=== PATIENT | male | born 1950 | race Caucasian/White ===

== ENCOUNTER 2018-04-10 15:01 | Emergency (ER) | payer MEDICARE, BC, OTHER ==
[2018-04-10 15:19] VITALS: PULSE 70
[2018-04-10] MEDS ORDERED: LIDOCAINE 1% INJ 10MG/ML (20 ML MDV) SQ ONE (17:15)
--- NOTE | 2018-04-10 17:15 | ED ---
General Adult HPI - General Chief complaint: Wound/Laceration Stated complaint: laceration Time Seen by Provider: 04/10/18 17:00 Source: patient, RN notes reviewed Mode of arrival: ambulatory Limitations: no limitations - History of Present Illness Initial comments: 67-year-old male with a past cardiac and OA history presents to the emergency department for a chief complaint of laceration to the right wrist that occurred about 3 hours ago. Patient states he was at work when he lacerated the wrist on a piece of sheet glass accidentally. Patient states it is painful to move his wrist with supination and flexion but denies any weakness or difficulty moving the wrist, hand or digits. Patient denies sustaining any other injuries. Patient states his tetanus is up-to-date. Patient has no other complaints at this time including shortness of breath, chest pain, abdominal pain, nausea or vomiting, headache, or visual changes. - Related Data Home Medications Medication Instructions Recorded Confirmed Pravastatin Sodium [Pravachol] 80 mg PO HS 05/16/14 05/18/14 Aspirin [Adult Low Dose Aspirin EC] 81 mg PO DAILY 04/10/18 04/10/18 Metoprolol Tartrate 25 mg PO BID 04/10/18 04/10/18 Multivitamins, Thera [Multivitamin 1 tab PO DAILY 04/10/18 04/10/18 (formulary)] Tamsulosin HCl [Flomax] 0.4 mg PO HS 04/10/18 04/10/18 Previous Rx's Medication Instructions Recorded Cephalexin [Keflex] 500 mg PO Q6HR 7 Days #12 cap 04/10/18 Allergies Allergy/AdvReac Type Severity Reaction Status Date / Time acetaminophen [From Vicodin] AdvReac Itching Verified 04/10/18 17:33 hydrocodone bitartrate AdvReac Itching Verified 04/10/18 17:33 [From Vicodin] Review of Systems ROS Statement: Those systems with pertinent positive or pertinent negative responses have been documented in the HPI. ROS Other: All systems not noted in ROS Statement are negative. Past Medical History Past Medical History: Hyperlipidemia, Hypertension, Myocardial Infarction (DE), Osteoarthritis (OA) Last Myocardial Infarction Date:: unknown History of Any Multi-Drug Resistant Organisms: None Reported Past Surgical History: Appendectomy, Coronary Bypass/CABG, Heart Catheterization , Tonsillectomy Additional Past Surgical History / Comment(s): triple bypass Past Anesthesia/Blood Transfusion Reactions: No Reported Reaction Past Psychological History: No Psychological Hx Reported Smoking Status: Former smoker Past Alcohol Use History: Occasional Past Drug Use History: None Reported General Exam - General Exam Comments Initial Comments: Well appearing male sitting up on edge of bed. Limitations: no limitations General appearance: alert, in no apparent distress Head exam: Present: atraumatic, normocephalic, normal inspection Eye exam: Present: normal appearance. Absent: scleral icterus, conjunctival injection ENT exam: Present: normal exam, mucous membranes moist Neck exam: Present: normal inspection, full ROM. Absent: tenderness, meningismus, lymphadenopathy Respiratory exam: Present: normal lung sounds bilaterally. Absent: respiratory distress, wheezes, rales, rhonchi, stridor Cardiovascular Exam: Present: regular rate, normal rhythm, normal heart sounds. Absent: systolic murmur, diastolic murmur, rubs, gallop, clicks Extremities exam: Present: full ROM (Full flexion, extension, radial and ulnar deviation of the right wrist. Full ROM and full strength including flexion, extension, abduction, adduction of all MCP, PIP, DIP joints in all 5 digits on RUE. ), tenderness (Tenderness of laceration site), normal capillary refill ( Capillary refill less than 2 seconds, radial pulse 2+ and ulnar pulse 2+ in the right upper extremity. Normal Kal test), other (Sensation intact in the right upper extremity. 3 cm laceration on the volar aspect of the right wrist about 6 centimeters proximal to the flexor crease. ). Absent: joint swelling Neurological exam: Present: alert, oriented X3, CN II-XII intact Psychiatric exam: Present: normal affect, normal mood Skin exam: Present: warm, dry, intact, normal color. Absent: rash Course Vital Signs 04/10/18 15:17 Temperature 98.0 F Pulse Rate 70 Respiratory 18 Rate Blood Pressure 162/73 O2 Sat by Pulse 99 Oximetry Procedures - Laceration Laceration #1 Consent Obtained: verbal consent Indication: laceration Site: other (distal volar right forearm 6cm proximal to flexor crease of wrist) Description: linear, flap Depth: simple, single layer Anesthetic Used: lidocaine 1% Anesthesia Technique: local infiltration Amount (mls): 2 Pre-repair: wound explored (wound expored extensively without any evidence of FB ), irrigated extensively (soaked in sterile water/soap, pressure irrigation using saline, irrigated with 1 L saline, iodine used for prep), deep structures intact (no deep structures visible or affected with thorough inspection) Size of Sutures: 5-0, other (ethilon ) Number of Sutures: 7 Technique: simple, interrupted Patient Tolerated Procedure: well, no complications Medical Decision Making - Medical Decision Making 67-year-old male since to the emergency department for a chief complaint of laceration to the right wrist. Patient accidentally cut his wrist on glass at work. Patient is up-to-date on tetanus. Patient has full range of motion of the right wrist hand and digits as well as full strength with wrist movements and finger movement. Cmm Inspector strength 5 out of 5 in right wrist. Neurovascular intact. There is about a 3 cm laceration on the lower right distal forearm. It is about 6 cm proximal to the flexor wrist crease. Wound was cleaned extensively with pressure irrigation. It was explored extensively. No evidence of tendon exposure or injury. No foreign bodies evident. Wrist x-ray showed no fracture or dislocation. However possible anterior 1 mm foreign body noted. No evidence of foreign body with extensive inspection of the laceration. Laceration was repaired with 7 simple interrupted sutures without any complications. Case was discussed with Dr. Marcus. Patient was put on antibiotics for close proximity to hand. He will follow up with primary care for wound recheck. I discussed with patient in depth to monitor for any signs of infection and to return immediately if these occur. He will return in 7-10 days to have sutures removed. - Radiology Data Radiology results: report reviewed, image reviewed (by myself and Dr Marcus) Disposition Clinical Impression: Laceration Disposition: HOME SELF-CARE Condition: Good Instructions: Care For Your Stitches (ED), Laceration (ED) Additional Instructions: Please take antibiotic as directed. Please keep the area clean. Please monitor for any signs of infection such as spreading or streaking redness or drainage and return if these occur. Follow-up with primary care in 1-2 days for wound recheck. Return to the emergency department in 7-10 days to have sutures removed. Prescriptions: Cephalexin [Keflex] 500 mg PO Q6HR 7 Days #12 cap Is patient prescribed a controlled substance at d/c from ED?: No Referrals: Bethany Ritchie MD [Primary Care Provider] - 1-2 days Time of Disposition: 18:11
--- NOTE | 2018-04-10 17:36 | XR ---
EXAMINATION TYPE: XR wrist limited RT DATE OF EXAM: 04/10/2018 COMPARISON: NONE HISTORY: Laceration TECHNIQUE: 2 views FINDINGS: I see no fracture nor dislocation. Carpal bones appear intact. There is a 1 mm opacity proj ecting in the anterior soft tissues at the distal radius on the lateral view. IMPRESSION: Possible tiny anterior foreign body. No fracture.
[2018-04-10 18:26] VITALS: BP 148/70; RESP 16; TEMP 98
== END 2018-04-10 18:25 | disposition home or self-care (01) ==
LOC: EC 15:01
DX: S51.811A Laceration without foreign body of right forearm, initial encounter (principal); E78.5 Hyperlipidemia, unspecified; I10 Essential (primary) hypertension; M19.90 Unspecified osteoarthritis, unspecified site; I25.2 Old myocardial infarction; Z79.82 Long term (current) use of aspirin; Z79.899 Other long term (current) drug therapy; Z88.5 Allergy status to narcotic agent; Z88.6 Allergy status to analgesic agent; W25.XXXA Contact with sharp glass, initial encounter; Y92.69 Other specified industrial and construction area as the place of occurrence of the external cause
CPT/HCPCS: 73100; 99283; 12002; J2001

== ENCOUNTER → 2018-04-30 | Outpatient (CLI) | payer MEDICARE, BC, OTHER ==
--- NOTE | 2018-05-01 15:18 | MR ---
EXAMINATION TYPE: MR hip RT wo con DATE OF EXAM: 04/30/2018 COMPARISON: None HISTORY: Pain in right hip TECHNIQUE: Multiplanar, multisequence images of the right were acquired without intravenous contrast per MRI departmental protocol. FINDINGS: There are moderate degenerative changes of the bilateral femoral acetabular joints with mar ginal osteophytes, cephalad joint space narrowing and acetabular roof sclerosis. Acetabular sourcil o steophytes are also seen. The femoral heads maintain a normal rounded contour. No evidence of avascul ar necrosis. No evidence of subchondral collapse. No bone marrow edema. No linear T1 fracture line. N o cam deformity. No findings that would suggest femoral acetabular impingement syndrome. There is degenerative disc disease of L5-S1, partially visualized. There is high suspicion for a deta ched anterior superior labral injury at the chondral labral junction with para labral cyst measuring 1 cm. There is degeneration of the posterior superior labrum. Very minimal high signal seen along the gluteal musculature at the insertion of the greater trochanter. This may relate to mild bursitis greg aterally. The prostate gland appears enlarged extending towards and impressing upon the urinary bladder. Bilate ral fat filled inguinal hernias are seen. No dilated bowel in the given [id number]. IMPRESSION: 1. High suspicion for a detached anterior superior labral tear with paralabral cyst despite this xu rthrographic exam. Posterior superior labral degeneration is also seen. 2. Moderate bilateral femoral acetabular arthropathy. 3. Minimal signal along the bilateral trochanteric bursa that may relate to trochanteric bursitis.
== END | disposition home or self-care (01) ==
LOC: RADMRIMAIN 12:30
PROVIDERS: ATTEND Family Medicine
DX: M16.0 Bilateral primary osteoarthritis of hip (principal); R93.7 Abnormal findings on diagnostic imaging of other parts of musculoskeletal system

== ENCOUNTER → 2022-10-08 | Outpatient (CLI) | payer MEDICARE, OTHER ==
[2022-10-08 12:02] LABS: African American GFR (CKD) >90 (>60 ml/min/1.73 sqM); Blood Urea Nitrogen 27 mg/dL (9-20); Non-African American GFR(CKD) >90 (>60 ml/min/1.73 sqM)
--- NOTE | 2022-10-08 15:57 | CT ---
EXAMINATION TYPE: CT chest w con CT DLP: 474.8 mGycm, Automated exposure control for dose reduction was used. DATE OF EXAM: 10/08/2022 12:22 PM COMPARISON: None CLINICAL INDICATION:Male, 72 years old with history of R91.1; PHH, lung nodule TECHNIQUE: Multiple axial images were obtained through the chest following the administration of the cc of Isovue 300. FINDINGS: LUNGS/ PLEURA: No pleural effusion, pneumothorax, focal consolidation. Tiny 2 mm nodular density daylin g the right major fissure (series 4, image 31). Favored to represent intrafissural lymph node. Right lower lobe 3 mm ground glass nodule (series 4, image 36). Left lower lobe 4 mm pulmonary nodule (seri es 4, image 42). Right middle lobe 3 mm pulmonary nodule (series 4, image 43). AIRWAY: Patent and unremarkable.. HEART: Size within normal limits. No pericardial effusion. Coronary arterial calcifications and/or st ents.. MEDIASTINUM: No gross evidence of adenopathy. Post CABG changes. VASCULATURE: No aortic aneurysm. Mild atherosclerotic calcification of the aorta. MUSCULOSKELETAL: No acute osseous abnormalities. Dorsal osteophytosis of the thoracic spine. Median s ternotomy wires. SOFT TISSUES/LYMPH NODES: Unremarkable. LOWER NECK: No significant findings. UPPER ABDOMEN: Small hiatal hernia. Postcholecystectomy. IMPRESSION: Scattered pulmonary nodules measuring up to 4 mm. In high-risk patient, a CT thorax can be considered in 12 months. In a low-risk patient no follow-up is recommended.
== END | disposition home or self-care (01) ==
LOC: RADCTMAIN 11:25
PROVIDERS: ATTEND Family Medicine
DX: R91.8 Other nonspecific abnormal finding of lung field (principal)
CPT/HCPCS: 82565; 84520; 71260; 36415; Q9967

== ENCOUNTER → 2023-10-23 | Outpatient (CLI) | payer MEDICARE, OTHER ==
[2023-10-23 08:37] LABS: African American GFR (CKD) >90 (>60 ml/min/1.73 sqM); Blood Urea Nitrogen 23 mg/dL (9-20); Non-African American GFR(CKD) 89 (>60 ml/min/1.73 sqM)
--- NOTE | 2023-10-24 10:42 | CT ---
EXAMINATION TYPE: CT chest w con DATE OF EXAM: 10/23/2023 COMPARISON: 10/08/2022 HISTORY: Pulmonary nodules CT DLP: 588 mGycm, Automated exposure control for dose reduction was used. CONTRAST: Performed injected with 100 ml mL of Isovue 300. TECHNIQUE: Axial images were obtained at 5 mm thick sections. Reconstructed images are reviewed on [employer] computer in the coronal plane. FINDINGS: Portion of the thyroid visualized is normal. There is a 0.7 cm pleural-based density in the posterior medial left lung base. Series 3 image 39. There is a subtle pleural-based density at the posterior left mid lung. No enlarged mediastinal or hilar adenopathy is evident. The ascending aorta diameter at the level o f the main pulmonary artery is 3.6 cm. The main pulmonary artery diameter at the bifurcation is 2.[address] sections are obtained through the upper abdomen. There is mild diffuse fatty infiltration of the liver. IMPRESSION: 1. Stable punctate densities. No new nodules evident. Follow-up exam in one year can be performed to confirm stability.
== END | disposition home or self-care (01) ==
LOC: RADCTMAIN 07:56
PROVIDERS: ATTEND Family Medicine
DX: R91.8 Other nonspecific abnormal finding of lung field (principal); J98.4 Other disorders of lung
CPT/HCPCS: 82565; 84520; 71260; Q9967

== ENCOUNTER → 2025-01-13 | Outpatient (CLI) | payer MEDICARE, OTHER ==
[2025-01-13 08:03] LABS: African American GFR (CKD) >90 (>60 ml/min/1.73 sqM); Blood Urea Nitrogen 21 mg/dL (9-20); Non-African American GFR(CKD) 89 (>60 ml/min/1.73 sqM)
--- NOTE | 2025-01-13 14:12 | CT ---
EXAMINATION TYPE: CT chest w con DATE OF EXAM: 01/13/2025 8:23 AM COMPARISON: 10/23/2023 CLINICAL INDICATION: Male, 74 years old with history of R91.1 SOLITARY PULMONARY NODULE; PHH, solitar y pulmonary nodules TECHNIQUE: Multiple axial images were obtained through the chest. Sagittal and coronal reformats were created for review. MIP was performed on a separate workstation. Contrast used:100 ml mL of Isovue [address] DLP: 462.1 mGycm, Automated exposure control for dose reduction was used. FINDINGS: Median sternotomy wires and post-CABG changes. Heart normal size without pericardial effusion. Modera te to severe aortic valve calcifications are present. Ectatic ascending aorta 3.7 cm. Mild atelectatic arch calcifications with conventional arch vessel br anching anatomy. Ectatic upper descending thoracic aorta 3.4 cm. No thoracic lymphadenopathy by CT size criteria. Mildly dilated main right and left pulmonary arteries up to 2.6 cm suggesting underlying pulmonary hy pertension. No consolidation or pleural effusion. A number of scattered 4 mm and smaller pulmonary nodules remain unchanged compatible with a benign etiology. Visualized upper abdomen shows a tiny hiatal hernia and cholecystectomy clips. Bones: Anterior endplate spondylosis mid and lower thoracic spine. IMPRESSION: 1. Stable 4 mm and smaller pulmonary nodules compatible with a benign etiology. 2. Possible underlying pulmonary arterial hypertension. 3. Moderate to severe aortic valve calcifications noted. 4. Tiny hiatal hernia. [facility], , 01/13/2025 2:10 PM
== END | disposition home or self-care (01) ==
LOC: RADCTMAIN 07:19
PROVIDERS: ATTEND Family Medicine
DX: R91.8 Other nonspecific abnormal finding of lung field (principal); K44.9 Diaphragmatic hernia without obstruction or gangrene; I35.0 Nonrheumatic aortic (valve) stenosis
CPT/HCPCS: 82565; 84520; 71260; 36415; Q9967